=== PATIENT | female | born 1985 | race Asian ===

== ENCOUNTER 2016-06-16 00:45 | Inpatient (IN) | payer SELFPAY ==
[~2016-06-16] VITALS: Ht 160 cm; Wt 63.0 kg
[2016-06-16 01:00] VITALS: BP 113/59
[2016-06-16] MEDS ORDERED: ROPIVACAINE 0.2%/NS PREMIX 250 ML EPI ONE (01:59)
[2016-06-16] MEDS ORDERED: LACTATED RINGERS 1,000 ML IV SCH (02:24)
[2016-06-16] MEDS ORDERED: OXYTOCIN 20 UNITS/LR PREMIX 1,000 ML IV SCH (02:24)
[2016-06-16] MEDS ORDERED: NALBUPHINE 10 MG/ML AMP IVP PRN ×2 (02:25)
[2016-06-16] MEDS ORDERED: METHYLERGONOVINE 0.2 MG/ML AMP IM SCH (02:25)
[2016-06-16] MEDS ORDERED: IBUPROFEN 800 MG TAB PO PRN ×2 (02:25)
[2016-06-16] MEDS ORDERED: PROMETHAZINE 25 MG/ML VIAL IVP PRN ×2 (02:25)
[2016-06-16] MEDS ORDERED: CARBOPROST 250 MCG/ML AMP IM PRN (02:25)
[2016-06-16] MEDS: LACTATED RINGERS 1,000 ML IV SCH ×4 (02:30→15:00)
[2016-06-16] MEDS ORDERED: ROPIVACAINE 0.2%/NS PREMIX 250 ML EPI SCH (02:45)
[2016-06-16] MEDS ORDERED: OXYTOCIN 10 UNITS/ML VIAL IM SCH (02:48)
[2016-06-16] MEDS: AMPICILLIN 1,000 MG VIAL ONE ×2 (03:14→07:30)
[2016-06-16] MEDS ORDERED: AMPICILLIN 2,000 MG in NACL 0.9% 100 ML IV SCH ×2 (03:20→03:30)
[2016-06-16] MEDS ORDERED: INFLUENZA VIRUS VACCINE QUAD 0.5 ML SYR IMVAC SCH (03:55)
[2016-06-16] MEDS ORDERED: MISOPROSTOL 25 MCG TAB VG PRN (03:55)
[2016-06-16] MEDS ORDERED: MISOPROSTOL 25 MCG TAB ONE (04:06)
[2016-06-16] MEDS ORDERED: AMPICILLIN 1,000 MG in NACL 0.9% 50 ML IV SCH (07:00)
[2016-06-16] MEDS ORDERED: AMPICILLIN 1,000 MG VIAL ONE ×2 (07:29→11:15)
--- NOTE | 2016-06-16 08:15 | NUR ---
PATIENT HAS BEEN SCREENED AND CATEGORIZED LOW NUTRITION RISK. PATIENT WILL BE SEEN WITHIN 7 DAYS OF ADMISSION. 06/22/[address]
[2016-06-16] MEDS ORDERED: OXYTOCIN 20 UNITS/LR PREMIX 1,000 ML IV ONE (08:36)
[2016-06-16] MEDS ORDERED: IBUPROFEN 800 MG TAB ONE (19:44)
[2016-06-16] MEDS ORDERED: WITCH HAZEL 40 PAD PACKAGE TP PRN (20:35)
[2016-06-16] MEDS ORDERED: oxyCODONE/APAP 5/325 MG 1 TAB TAB PO PRN (20:35)
[2016-06-16] MEDS ORDERED: METHYLERGONOVINE 0.2 MG TAB PO PRN (20:35)
[2016-06-16] MEDS ORDERED: OXYTOCIN 10 UNITS/ML VIAL IM PRN (20:35)
[2016-06-16] MEDS ORDERED: MEASLES, MUMPS, AND RUBELLA 1 VIAL SQVAC PRN (20:35)
[2016-06-16] MEDS ORDERED: BENZOCAINE/MENTHOL 20%-0.5% 60 GM CAN TP PRN (20:35)
[2016-06-16] MEDS ORDERED: METHYLERGONOVINE 0.2 MG/ML AMP IM PRN (20:35)
[2016-06-16] MEDS ORDERED: TEMAZEPAM 15 MG CAP PO PRN (20:35)
[2016-06-16] MEDS ORDERED: DOCUSATE SOD/SENNA 50/8.6 MG 1 TAB PO SCH (21:00)
[2016-06-17] MEDS ORDERED: INFLUENZA VIRUS VACCINE QUAD 0.5 ML SYR IMVAC SCH (00:30)
[2016-06-17] MEDS: HYDROcodone/APAP 5/325 MG 1 TAB TAB PO PRN ×3 (02:30→20:56)
[2016-06-17] MEDS: FERROUS SULFATE 325 MG TABEC PO SCH ×3 (08:59→18:59)
[2016-06-18] MEDS: HYDROcodone/APAP 5/325 MG 1 TAB TAB PO PRN (01:06)
[2016-06-18] MEDS: FERROUS SULFATE 325 MG TABEC PO SCH ×2 (08:25→12:00)
== END 2016-06-18 14:00 | disposition home or self-care (01) | DRG 775 ==
LOC: MLD 00:45 → MFCC 20:20
PROVIDERS: ADMIT Obstetrics & Gynecology; ATTEND Obstetrics & Gynecology
PROC: 10E0XZZ Delivery of Products of Conception, External Approach (ICD-10-PCS; principal; 2016-06-16)
PROC: 10907ZC Drainage of Amniotic Fluid, Therapeutic from Products of Conception, Via Natural or Artificial Opening (ICD-10-PCS; 2016-06-16)
PROC: 3E033VJ Introduction of Other Hormone into Peripheral Vein, Percutaneous Approach (ICD-10-PCS; 2016-06-16)
PROC: 0W8NXZZ Division of Female Perineum, External Approach (ICD-10-PCS; 2016-06-16)
PROC: 3E0S3CZ (ICD-10-PCS; 2016-06-16)
PROC: 00HU33Z Insertion of Infusion Device into Spinal Canal, Percutaneous Approach (ICD-10-PCS; 2016-06-16)
PROC: 3E0234Z Introduction of Serum, Toxoid and Vaccine into Muscle, Percutaneous Approach (ICD-10-PCS; 2016-06-17)
DX: O80 Encounter for full-term uncomplicated delivery (principal); Z37.0 Single live birth; Z23 Encounter for immunization; Z3A.39 39 weeks gestation of pregnancy